=== PATIENT | female | born 1985 | race African-American/Black ===

== ENCOUNTER 2020-01-22 20:26 | Emergency (ER) | payer BC, MEDICAID ==
[2020-01-22 20:32] VITALS: BP 120/72
--- NOTE | 2020-01-22 20:43 | ER Document Report ---
ED Medical Screen (RME) - General Chief Complaint: Abdominal Cramping Stated Complaint: CRAMPING/8 WEEKS PREG Time Seen by Provider: 01/22/20 20:40 Primary Care Provider: DIMITRIS BENSON MD [Primary Care Provider] - Follow up as needed Mode of Arrival: Ambulatory Information source: Patient Notes: 34-year-old female presents to ED for pelvic and abdominal cramping. She is 8 weeks . 4 para 3. States she does have some nausea no vomiting she states she is also having some shortness of breath but she does not know if it is because of anxiety or another reason. She is alert oriented respirations regular nonlabored at this time. Denies any vaginal bleeding. I have greeted and performed a rapid initial assessment of this patient. A comprehensive ED assessment and evaluation of the patient, analysis of test results and completion of medical decision making process will be conducted by an additional ED providers. - Related Data Allergies/Adverse Reactions: No Known Allergies Allergy (Verified 12/31/13 18:56) Past Medical History Pulmonary Medical History: Denies: Hx Tuberculosis Physical Exam - Vital signs Vitals: Temp Pulse Resp BP Pulse Ox 98.1 F 72 12 120/72 100 01/22/20 20:31 01/22/20 20:31 01/22/20 20:31 01/22/20 20:31 01/22/20 20:31 Course - Vital Signs Vital signs: Temp Pulse Resp BP Pulse Ox 98.1 F 72 12 120/72 100 01/22/20 20:31 01/22/20 20:31 01/22/20 20:31 01/22/20 20:31 01/22/20 20:31 Doctor's Discharge - Discharge Referrals: DIMITRIS BENSON MD [Primary Care Provider] - Follow up as needed
[2020-01-22 21:08] LABS: ABSOLUTE EOSINOPHILS # (AUTO) 0.1 10^3/uL (0.0-0.6); ABSOLUTE LYMPHOCYTES (AUTO) 4.2 10^3/uL (0.5-4.7); ABSOLUTE MONOCYTES (AUTO) 0.8 10^3/uL (0.1-1.4); ABSOLUTE NEUT (AUTO) 11.3 10^3/uL (1.7-8.2); BASOPHILS % (AUTO) 0.3 % (0-2); EOSINOPHILS % (AUTO) 0.6 % (0-6); HEMATOCRIT 37.2 % (36.0-47.0); HEMOGLOBIN 12.9 g/dL (12.0-15.5); LYMPHOCYTES % (AUTO) 25.4 % (13-45); MEAN CORPUSCULAR HEMOGLOBIN 28.2 pg (27.0-33.4); MEAN CORPUSCULAR HGB CONC 34.7 g/dL (32.0-36.0); MEAN CORPUSCULAR VOLUME 81 fl (80-97); PLATELET COUNT 293 10^3/uL (150-450); RED BLOOD COUNT 4.58 10^6/uL (3.72-5.28); RED CELL DISTRIBUTION WIDTH 13.8 % (11.5-14.0); SEGMENTED NEUTROPHILS % (AUTO) 68.7 % (42-78); TOTAL CELLS COUNTED % (AUTO) 100 %; WHITE BLOOD COUNT 16.4 10^3/uL (4.0-10.5)
[2020-01-22 21:12] LABS: APPEARANCE,URINE SLIGHTLY-CLOUDY; BILIRUBIN,URINE NEGATIVE (NEGATIVE); COLOR,URINE YELLOW; GLUCOSE, URINE NEGATIVE (NEGATIVE); KETONES,URINE NEGATIVE (NEGATIVE); LEUKOCYTE ESTERASE,URINE NEGATIVE (NEGATIVE); NITRITE,URINE NEGATIVE (NEGATIVE); PROTEIN,URINE NEGATIVE (NEGATIVE)
[2020-01-22 21:26] LABS: ALBUMIN 4.2 g/dL (3.5-5.0); ALKALINE PHOSPHATASE 57 U/L (38-126); ANION GAP 8 (5-19); ASPARTATE AMINO TRANSFERASE 23 U/L (14-36); BILIRUBIN,TOTAL 0.3 mg/dL (0.2-1.3); BLOOD UREA NITROGEN 14 mg/dL (7-20); CALCIUM 9.6 mg/dL (8.4-10.2); CARBON DIOXIDE 25 mmol/L (22-30); CHLORIDE 105 mmol/L (98-107); GLUCOSE 103 mg/dL (75-110); POTASSIUM 4.3 mmol/L (3.6-5.0); TOTAL PROTEIN 7.6 g/dL (6.3-8.2)
--- NOTE | 2020-01-22 22:21 | ER Document Report ---
ED GI/ - General Chief Complaint: Abdominal Cramping Stated Complaint: CRAMPING/8 WEEKS PREG Time Seen by Provider: 01/22/20 20:40 Primary Care Provider: DIMITRIS BENSON MD [Primary Care Provider] - Follow up as needed Mode of Arrival: Ambulatory Notes: CHIEF COMPLAINT: Pelvic cramping tonight HPI: 34-year-old female who is a G4, approximately 8 weeks gestation by ultrasound per the patient presenting for pelvic cramping in the suprapubic region tonight. Has had a creamy vaginal discharge for the last 2 days. Currently denies back pain or dysuria. Has not had nausea vomiting fever. Denies chest pain shortness of breath or any other complaints at this time. Denies vaginal bleeding ROS: See HPI - all other systems were reviewed and are otherwise negative Constitutional: no fever or recent illness Eyes: no drainage, no blurred vision ENT: no runny nose, no sore throat Cardiovascular: no chest pain Resp: no SOB, no cough GI: no vomiting, no diarrhea : no dysuria, + vaginal discharge, positive suprapubic cramping Integumentary: no rash Allergy: no hives Musculoskeletal: no extremity pain or swelling Neurological: no numbness/tingling, no weakness MEDICATIONS: I agree with the patient medications as charted by the RN. ALLERGIES: I agree with the allergies as charted by the RN. PAST MEDICAL HISTORY/PAST SURGICAL HISTORY: Reviewed and agree as charted by RN. SOCIAL HISTORY: Reviewed and agree as charted by RN. FAMILY HISTORY: No significant familial comorbid conditions directly related to patient complaint EXAM: Reviewed vital signs as charted by RN. CONSTITUTIONAL: Alert and oriented and responds appropriately to questions. Well-appearing; well-nourished HEAD: Normocephalic; atraumatic EYES: PERRL; Conjunctivae clear, sclerae non-icteric ENT: normal nose; no rhinorrhea; moist mucous membranes; pharynx without lesions noted NECK: Supple without meningismus; non-tender; no cervical lymphadenopathy, no masses CARD: RRR; no murmurs, no clicks, no rubs, no gallops; symmetric distal pulses RESP: Normal chest excursion without splinting or tachypnea; breath sounds clear and equal bilaterally; no wheezes, no rhonchi, no rales, ABD/GI: Obese abdomen normal bowel sounds; non-distended; soft, mild tenderness over the suprapubic region on palpation, no rebound, no guarding; no palpable organomegaly or masses : Female nurse bryologist present. External genitalia normal. No skin lesions noted. Pelvic Exam: No active bleeding. No purulent discharge. Cervix appears normal. Cervical loss is closed. No CMT. No lesions or masses. Uterus enlarged consistent with 8-week gestation and mildly tender. Right/Left adnexa normal size and mildly tender bilaterally. BACK: The back appears normal and is non-tender to palpation, there is no CVA tenderness EXT: Normal ROM in all joints; non-tender to palpation; no cyanosis, no effusions, no edema SKIN: Normal color for age and race; warm; dry; good turgor; no acute lesions noted NEURO: Moves all extremities equally; Motor and sensory function intact PSYCH: The patient's mood and manner are appropriate. Grooming and personal hygiene are appropriate. MDM: 34-year-old female presenting for pelvic pain and without bleeding. States she had an ultrasound 2 weeks ago that showed a small hemorrhage but an intrauterine . Initial screening labs and ultrasound placed via triage process. Patient blood type is B+ by records - Related Data Allergies/Adverse Reactions: No Known Allergies Allergy (Verified 12/31/13 18:56) Past Medical History - General Information source: Patient - Social History Smoking Status: Never Smoker Chew tobacco use (# tins/day): No Frequency of alcohol use: None Drug Abuse: None Family History: Reviewed & Not Pertinent Pulmonary Medical History: Denies: Hx Tuberculosis Physical Exam - Vital signs Vitals: Temp Pulse Resp BP Pulse Ox 98.1 F 72 12 120/72 100 01/22/20 20:31 01/22/20 20:31 01/22/20 20:31 01/22/20 20:31 01/22/20 20:31 Course - Re-evaluation Re-evalutation: 01/23/20 00:19 Patient has a fairly large subchorionic hemorrhage. I spoke with the patient at length about this. She does have an BILLET BED OPERATOR for follow-up. We discussed bleeding precautions. Will discharge home to follow-up with her BILLET BED OPERATOR - Vital Signs Vital signs: Temp Pulse Resp BP Pulse Ox 98.1 F 72 12 120/72 100 01/22/20 20:39 01/22/20 20:31 08/15/20 20:31 01/22/20 20:31 01/22/20 20:31 - Laboratory Result Diagrams: 01/22/20 20:56 01/22/20 20:56 Laboratory results interpreted by me: 01/22/20 01/22/20 01/22/20 20:56 20:56 20:56 WBC 16.4 H Absolute Neuts (auto) 11.3 H Beta HCG, Quant [id number] H Urine Urobilinogen 4.0 H Discharge - Discharge Clinical Impression: Pelvic pain affecting Qualifiers: Trimester: first trimester Qualified Code(s): O26.891 - Other specified related conditions, first trimester; R10.2 - Pelvic and perineal pain Subchorionic hemorrhage Qualifiers: Fetus number: single or unspecified fetus Trimester: first trimester Qualified Code(s): O41.8X10 - Other specified disorders of amniotic fluid and membranes, first trimester, not applicable or unspecified; O46.8X1 - Other antepartum hemorrhage, first trimester Condition: Stable Disposition: HOME, SELF-CARE Additional Instructions: Follow-up closely with your BILLET BED OPERATOR for further evaluation and treatment. It was noted on your ultrasound today that you have a fairly large subchorionic hemorrhage which is bleeding along the placenta. If you develop onset of vaginal bleeding or you are saturating greater than 2 pads per hour we will need to see you back in the emergency department otherwise you should closely follow- up with your OB. Tylenol for pain. Referrals: DIMITRIS BENSON MD [Primary Care Provider] - Follow up as needed
[2020-01-22 22:59] LABS: RBCS (WET MOUNT) NO RBCS SEEN; T.VAGINALIS (WET MOUNT) NO TRICHOMONAS SEEN; WBCS (WET MOUNT) FEW WBCS SEEN; YEAST (WET MOUNT) NO YEAST SEEN
--- NOTE | 2020-01-22 23:58 | RADIOLOGY REPORT (SQ) ---
EXAM DESCRIPTION: US TRANSVAGINAL COMPLETED DATE/TME: 01/22/2020 20:44 CLINICAL HISTORY: 34 years, Female, Pelvic cramping, 8 weeks COMPARISON: None. TECHNIQUE: LIMITATIONS: None. FINDINGS: There is a live 8 week 1 day IUP, based on a crown-rump length of 1.7 cm. Embryonic cardiac activity was measured at 180 bpm. There is a 5.8 x 2.6 x 1.2 cm subchorionic hemorrhage. The cervix measures 3.2 cm in length and is closed. The right ovary is unremarkable. The left ovary could not be identified. IMPRESSION: Live IUP with a subchorionic hemorrhage. copyright 2010 [employer]- All Rights Reserved
[2020-01-23 00:25] LABS: CHLAM PCR NOT DETECTED (NOT DETECT)
== END 2020-01-23 00:51 | disposition home or self-care (01) ==
LOC: ER 20:26
DX: O46.91 Antepartum hemorrhage, unspecified, first trimester (principal); O26.891 Other specified pregnancy related conditions, first trimester; R10.9 Unspecified abdominal pain; R10.30 Lower abdominal pain, unspecified; R10.2 Pelvic and perineal pain; Z3A.08 8 weeks gestation of pregnancy
CPT/HCPCS: 36415; 76817; 80053; 81001; 84702; 85025; 87210; 87491; 87591; 99284